=== PATIENT | female | born 1955 | race Caucasian/White ===

== ENCOUNTER → 2018-11-04 | Outpatient (CLI) | payer OTHER ==
[~2018-11-04] MED LIST: NAPROSYN500 MG PO; NORFLEX100 MG PO; PROZAC 20 MG20 M1 PO
== END ==
LOC: RAD 14:47
DX: M17.11 Unilateral primary osteoarthritis, right knee (principal); M25.761 Osteophyte, right knee

== ENCOUNTER 2019-10-25 17:28 | Emergency (ER) | payer OTHER ==
[~2019-10-25] VITALS: Ht 154.9 cm; Wt 52.2 kg
[2019-10-25 19:02] VITALS: BP 135/69
== END 2019-10-25 19:02 | disposition home or self-care (01) ==
LOC: ER 17:28
DX: S80.02XA Contusion of left knee, initial encounter (principal); Z79.899 Other long term (current) drug therapy; W19.XXXA Unspecified fall, initial encounter; Y93.89 Activity, other specified; Y92.89 Other specified places as the place of occurrence of the external cause; Y99.8 Other external cause status

== ENCOUNTER → 2019-12-05 | Outpatient (CLI) | payer OTHER | LOC: MRI 13:40 | PROVIDERS: ATTEND Orthopaedic Surgery Sports Medicine | DX: S83.282A Other tear of lateral meniscus, current injury, left knee, initial encounter (principal); S83.242A Other tear of medial meniscus, current injury, left knee, initial encounter; M25.462 Effusion, left knee; X58.XXXA Exposure to other specified factors, initial encounter; Y92.89 Other specified places as the place of occurrence of the external cause; Y99.8 Other external cause status; Y93.89 Activity, other specified ==

== ENCOUNTER → 2020-01-19 | Outpatient (CLI) | payer OTHER ==
[~2020-01-19] MED LIST changes: +HAIR, SKIN & N1 EAC3 PO; +MELOXICAM15 MG PO; +TRAMADOL 50 MG50 MG PO
== END ==
LOC: LAB 09:56
PROVIDERS: ATTEND Student in an Organized Health Care Education/Training Program
DX: Z01.812 Encounter for preprocedural laboratory examination (principal); Z11.59 Encounter for screening for other viral diseases

== ENCOUNTER 2020-01-24 07:57 | Day surgery (SDC) | payer OTHER ==
[~2020-01-24] VITALS: Ht 154.9 cm; Wt 52.2 kg
[2020-01-24 08:51] VITALS: BP 131/65
[2020-01-24 10:42] VITALS: BP 131/65
--- NOTE | 2020-01-24 21:42 | O ---
[facility] [employer] [place] [address] OPERATIVE REPORT Name: LANDY DAIGLE Room #: 150-3 [facility]..#: [id number] Admission: 01/24/20 Attend Phys: Demond Pratt MD Discharge: Date of : 55 Report #: [id number] THIS REPORT FOR: cc: Jeremiah Velasco James A. DO McCabe, Michael P. MD ~ CC: Jeremiah Pratt DATE OF SERVICE: 01/24/2020 SERVICE: Orthopedics. FACILITY: [facility]. SURGEON: Demond Pratt MD CROCHET MACHINE OPERATOR: Yashira Cruz NP PREOPERATIVE DIAGNOSES: 1. Left knee pain. 2. Left knee medial meniscus tear. POSTOPERATIVE DIAGNOSES: 1. Left knee pain. 2. Left knee medial meniscus tear. 3. Left knee partial lateral meniscus tear. 4. Left knee bicompartmental chondromalacia. PROCEDURE: Left knee arthroscopic partial medial and lateral meniscectomy. COMPLICATIONS: None. DRAINS: None. SPECIMENS: None. ANESTHESIA: General with LMA. FINDINGS: 1. Complex flap tear of the medial meniscus with a large displaced flap in the gutter, treated with partial meniscectomy. 2. Inner rim meniscal root tear of the lateral meniscus, treated with partial meniscectomy. 3. Grade 3 chondromalacia of the patellofemoral joint, treated with chondroplasty as well as 2 and 3 chondromalacia of the medial femoral condyle, [facility] [address] [address] OPERATIVE REPORT Name: LANDY DAIGLE Room #: 150-3 [facility] M..#: [id number] Admission: 01/24/20 Attend Phys: Demond Pratt MD Discharge: Date of : 55 Report #: [id number] treated with limited chondroplasty. HISTORY: The patient is a female who works here at [employer] and sustained an injury while on the job, which resulted in acute knee pain. We tried conservative treatment including rest, activity modifications, injections, oral medicines and physical therapy, but unfortunately she continued to have pain and was indicated for surgical treatment. The preoperative MRI demonstrated an obvious displaced fragment of the medial meniscus with a flap tear component, but she did have more diffuse knee pain as well. We knew any chondromalacia was a preexisting condition and not related to specific work injury. The diagnosis was an acute meniscus tear secondary to the work injury. Risks, benefits, alternatives, and indication of surgery discussed with her in detail. Risks include but not limited to pain, bleeding, infection, injury to nerves or blood vessels, persistent pain despite surgical intervention, failure of any preexisting chondral injury, stiffness, need for further surgery as well as complications related to anesthesia. Despite the risks, she wished to proceed. PROCEDURE IN DETAIL: After left lower extremity was correctly identified in the preoperative holding area as the operative extremity, the patient was taken to the operating room where general anesthesia was induced without complication with LMA. She was padded appropriately. Prophylactic antibiotics were administered at the appropriate time. Tourniquet was applied to the left leg. Left lower extremity was then prepped and draped in standard sterile fashion. Time-out procedure was performed. Esmarch was used. Tourniquet inflated to 250 mmHg. Standard anterolateral viewing portal was established followed by anteromedial working portal. Diagnostic arthroscopy revealed the above findings. Shaver was used to perform a chondroplasty of the patella and then of the medial femoral condyle as well. The medial meniscus was visualized and was seen to have a complex tear. Initially, we could not see the displaced meniscal flap, but this was obviously present as there was a meniscal defect from the posterior horn extending up to the mid portion of the body on the femoral side. The tibial side overall was intact with some horizontal tearing noted. The biter was used to debride the unstable portions of the body and then posterior horn and then this large flap tear of the meniscus was finally delivered out of the femoral gutter and then it was debrided without difficulty. Approximately 60% of the meniscal volume was resected with the meniscectomy. The probe was then used to confirm that a stable meniscal rim was present. The shaver was used to complete a medial femoral condyle chondroplasty and then the leg was placed in the [id number] position, the lateral compartment was visualized. There was an inner rim tear of the lateral meniscus at the root as well as towards the junction of the anterior horn and the body and the shaver was used to perform a partial lateral meniscectomy as well. The articular cartilage in the lateral [address] [address] OPERATIVE REPORT Name: LANDY DAIGLE Room #: 150-3 [facility] M.R.#: [id number] Admission: 01/24/20 Attend Phys: Demond Pratt MD Discharge: Date of : 55 Report #: [id number] compartment overall was normal on the femur. There was some fissuring of the cartilage on the lateral side, but no evidence of significant grade 3 or grade 4 changes. Scope was then placed into the patellofemoral joint once more and the chondroplasty of the patella was completed. Synovectomy was performed anteriorly within the knee medially, laterally and then in the suprapatellar pouch as well as there was quite a bit of intense synovitis noted. Then, the arthroscopic effusion was drained and instruments were removed. The portal sites were closed. Local anesthetic was infiltrated around the soft tissues and the skin incisions. A sterile dressing was applied followed by compression hose. The patient was awakened from anesthesia and taken to recovery room in stable condition. No complications. All counts were recorded as correct. <ELECTRONICALLY SIGNED> By: Demond Pratt MD 01/24/20 [id number] Demond Pratt MD /nt
== END 2020-01-24 10:42 | disposition home or self-care (01) ==
LOC: TBA 07:57 → OR 07:57 → TBA 08:01 → OR 10:42
PROVIDERS: ATTEND Orthopaedic Surgery Sports Medicine
DX: M25.562 Pain in left knee (principal); S83.232A Complex tear of medial meniscus, current injury, left knee, initial encounter; S83.282A Other tear of lateral meniscus, current injury, left knee, initial encounter; M94.262 Chondromalacia, left knee; M65.862 Other synovitis and tenosynovitis, left lower leg; Z98.890 Other specified postprocedural states; Z79.899 Other long term (current) drug therapy; Z98.51 Tubal ligation status; X58.XXXA Exposure to other specified factors, initial encounter; Y93.89 Activity, other specified; Y92.89 Other specified places as the place of occurrence of the external cause; Y99.8 Other external cause status
CPT/HCPCS: 50010; 50101; 50405; 56527; 57103; 57179; 62110; 62900; 70005